=== PATIENT | male | born 1955 | race Caucasian/White ===

== ENCOUNTER 2017-05-16 11:55 | Emergency (ER) | payer MEDICAID ==
[~2017-05-16] VITALS: Ht 162.6 cm; Wt 88.9 kg
[2017-05-16 11:58] VITALS: BP 151/88; Ht 162.6 cm; Wt 88.9 kg
[2017-05-16 12:54] LABS: BASOPHIL % 0.6 % (0-2); PLATELET COUNT 209 x10^3mcL (130-400); RED CELL DISTRIBUTION WIDTH 12.4 % (11.5-14.5)
[2017-05-16 13:03] LABS: CALCIUM 8.5 mg/dL (8.5-10.1); CHLORIDE SERUM 106 mmol/L (98-107); CREATININE SERUM 1.1 mg/dL (0.7-1.3); GFR1 > 60 mL/min; GLUCOSE SERUM 144 mg/dL (74-106); POTASSIUM SERUM 3.9 mmol/L (3.5-5.1); SODIUM SERUM 144 mmol/L (136-145)
[2017-05-16 13:08] LABS: ALBUMIN 3.7 g/dL (3.4-5.0); ALKALINE PHOSPHATASE 59 U/L (46-116); ALT/SGPT 58 U/L (16-63); AST/SGOT 36 U/L (15-37); BILIRUBIN TOTAL 0.72 mg/dL (0.20-1.00); TOTAL PROTEIN, SERUM 6.7 g/dL (6.4-8.2)
== END 2017-05-16 13:57 | disposition home or self-care (01) ==
LOC: ED 11:55
PROVIDERS: Emergency Medicine
DX: R07.9 Chest pain, unspecified (principal); E11.9 Type 2 diabetes mellitus without complications; I10 Essential (primary) hypertension; E78.5 Hyperlipidemia, unspecified
CPT/HCPCS: 36415; 82962; 83880

== ENCOUNTER 2017-07-13 14:25 | Inpatient (IN) | payer MEDICAID ==
[~2017-07-13] VITALS: Ht 160 cm; Wt 78.0 kg
[2017-07-13 14:29] VITALS: Ht 160 cm; Wt 78.0 kg
[2017-07-13 15:41] LABS: BASOPHIL % 0.5 % (0-2); PLATELET COUNT 218 x10^3mcL (130-400); RED CELL DISTRIBUTION WIDTH 12.3 % (11.5-14.5)
[2017-07-13 15:54] LABS: AMPHETAMINE QUAL UR NONE DETECTED (NEG <=1000)
[2017-07-13 16:01] LABS: CALCIUM 8.8 mg/dL (8.5-10.1); CARBON DIOXIDE 29.2 mmol/L (21-32); CHLORIDE SERUM 108 mmol/L (98-107); CREATININE SERUM 1.1 mg/dL (0.7-1.3); GFR1 > 60 mL/min; GLUCOSE SERUM 152 mg/dL (74-106); POTASSIUM SERUM 4.3 mmol/L (3.5-5.1); SODIUM SERUM 144 mmol/L (136-145)
[2017-07-13 16:05] LABS: ALBUMIN 3.7 g/dL (3.4-5.0); ALKALINE PHOSPHATASE 83 U/L (46-116); ALT/SGPT 61 U/L (16-63); AST/SGOT 35 U/L (15-37); BILIRUBIN TOTAL 0.49 mg/dL (0.20-1.00)
[2017-07-13] MEDS ORDERED: ASPIR 8181 MG PO (17:01)
[2017-07-13] MEDS ORDERED: SIMVASTATIN10 M1 PO (17:01)
[2017-07-13] MEDS ORDERED: LISINOPRIL10 MG PO (17:02)
[2017-07-13] MEDS ORDERED: GLIMEPIRIDE2 M1 PO (17:02)
[2017-07-13 17:10] LABS: microscopic required? NO
[2017-07-13 17:20] LABS: UA SPECIFIC GRAVITY 1.025 (1.005-1.035); urine erythrocyte NEGATIVE (NEGATIVE)
[2017-07-13 17:41] LABS: MAGNESIUM 2.2 mg/dL (1.8-2.4); PHOSPHOROUS 4.4 mg/dL (2.5-4.9)
[2017-07-13 18:11] LABS: FREE THYROXINE INDEX 2.5 ug/dL (1.4-4.5); T4(THYROXINE) 7.7 ug/dL (4.7-13.3)
[2017-07-13 18:21] VITALS: BP 140/76
[2017-07-13 18:35] LABS: T3 TOTAL 1.46 ng/mL
[2017-07-13 18:51] LABS: FREE T4 0.8 ng/dL (0.76-1.46)
[2017-07-13 19:30] VITALS: BP 113/69
[2017-07-14 05:25] VITALS: BP 127/68
[2017-07-14 06:51] LABS: BASOPHIL % 0.5 % (0-2); PLATELET COUNT 205 x10^3mcL (130-400); RED CELL DISTRIBUTION WIDTH 12.9 % (11.5-14.5)
[2017-07-14 06:59] LABS: CALCIUM 8.1 mg/dL (8.5-10.1); CARBON DIOXIDE 23.8 mmol/L (21-32); CHLORIDE SERUM 108 mmol/L (98-107); CHOLESTEROL 140 mg/dL (<200); CHOLESTEROL/HDL RATIO 4.7; GFR1 > 60 mL/min; GLUCOSE SERUM 146 mg/dL (74-106); HDL CHOLESTEROL 30 mg/dL (40-60); MAGNESIUM 2.1 mg/dL (1.8-2.4); PHOSPHOROUS 4.2 mg/dL (2.5-4.9); POTASSIUM SERUM 4.2 mmol/L (3.5-5.1); SODIUM SERUM 141 mmol/L (136-145); TRIGLYCERIDES 373 mg/dL (<150)
[2017-07-14 09:47] VITALS: BP 121/78
[2017-07-14 12:47] VITALS: BP 131/71
[2017-07-14 14:24] VITALS: BP 131/71
== END 2017-07-14 16:22 | disposition home or self-care (01) | DRG 243 ==
LOC: ED 14:25 → DU 16:49
PROVIDERS: Emergency Medicine; Family Medicine
DX: K21.9 Gastro-esophageal reflux disease without esophagitis (principal); E87.8 Other disorders of electrolyte and fluid balance, not elsewhere classified; E83.51 Hypocalcemia; E11.9 Type 2 diabetes mellitus without complications; I10 Essential (primary) hypertension; E78.5 Hyperlipidemia, unspecified; Z68.29 Body mass index [BMI] 29.0-29.9, adult; Z79.82 Long term (current) use of aspirin; F15.21 Other stimulant dependence, in remission; F17.210 Nicotine dependence, cigarettes, uncomplicated
CPT/HCPCS: 82962; 83880; 84439; J7030; Q0092

== ENCOUNTER 2017-11-24 14:33 | Emergency (ER) | payer OTHER ==
[~2017-11-24] VITALS: Ht 160 cm; Wt 75.7 kg
[~2017-11-24 14:33] MED LIST: ASPIR 8181 MG PO; GLIMEPIRIDE2 M1 PO; LISINOPRIL10 MG PO; SIMVASTATIN10 M1 PO
[2017-11-24 14:44] VITALS: Ht 160 cm; Wt 75.7 kg
[2017-11-24 15:25] VITALS: BP 149/63
== END 2017-11-24 15:25 | disposition home or self-care (01) ==
LOC: ED 14:33
DX: K52.9 Noninfective gastroenteritis and colitis, unspecified (principal); I10 Essential (primary) hypertension; E11.9 Type 2 diabetes mellitus without complications; Z90.89 Acquired absence of other organs; Z98.890 Other specified postprocedural states

== ENCOUNTER 2017-11-29 09:54 | Emergency (ER) | payer OTHER ==
[2017-11-29 10:02] VITALS: Ht 160 cm
[2017-11-29 11:43] LABS: BASOPHIL % 0.5 % (0-2); PLATELET COUNT 224 x10^3mcL (130-400); RED CELL DISTRIBUTION WIDTH 12.8 % (11.5-14.5)
[2017-11-29 11:47] LABS: CALCIUM 8.8 mg/dL (8.5-10.1); CARBON DIOXIDE 26.4 mmol/L (21-32); CREATININE SERUM 1.3 mg/dL (0.7-1.3)
[2017-11-29 11:54] LABS: ALBUMIN 3.6 g/dL (3.4-5.0); BILIRUBIN TOTAL 0.5 mg/dL (0.20-1.00); TOTAL PROTEIN, SERUM 7.1 g/dL (6.4-8.2)
[2017-11-29 14:45] VITALS: BP 144/86
== END 2017-11-29 14:44 | disposition home or self-care (01) ==
LOC: ED 09:54
PROVIDERS: Specialist
DX: R19.7 Diarrhea, unspecified (principal); R11.2 Nausea with vomiting, unspecified; R10.84 Generalized abdominal pain; I10 Essential (primary) hypertension; E11.9 Type 2 diabetes mellitus without complications; E78.00 Pure hypercholesterolemia, unspecified; Z90.89 Acquired absence of other organs; Z98.890 Other specified postprocedural states
CPT/HCPCS: 82962; J7030

== ENCOUNTER 2018-05-04 13:22 | Emergency (ER) | payer OTHER ==
[~2018-05-04] VITALS: Ht 157.5 cm; Wt 73.5 kg
[2018-05-04 13:28] VITALS: BP 138/108; Ht 157.5 cm; Wt 73.5 kg
== END 2018-05-04 14:13 | disposition home or self-care (01) ==
LOC: ED 13:22
DX: M25.572 Pain in left ankle and joints of left foot (principal); G89.29 Other chronic pain; I10 Essential (primary) hypertension; E11.9 Type 2 diabetes mellitus without complications; E78.00 Pure hypercholesterolemia, unspecified; Z98.890 Other specified postprocedural states; Z90.89 Acquired absence of other organs